=== PATIENT | female | born 1965 | race Caucasian/White ===

== ENCOUNTER 2018-03-21 04:37 | Emergency (ER) | payer MEDICAID ==
[2018-03-21 06:06] VITALS: BP 136/76
== END 2018-03-21 06:06 | disposition home or self-care (01) ==
LOC: ED 04:37
DX: M54.41 Lumbago with sciatica, right side (principal); M79.604 Pain in right leg
CPT/HCPCS: J1885; Q0092

== ENCOUNTER 2018-03-31 23:15 | Emergency (ER) | payer MEDICAID ==
[~2018-03-31] VITALS: Ht 157.5 cm; Wt 71.4 kg
[2018-03-31 23:34] VITALS: Ht 157.5 cm; Wt 71.4 kg
[2018-04-01 01:26] VITALS: BP 154/64
== END 2018-04-01 01:18 | disposition home or self-care (01) ==
LOC: ED 23:15
DX: M54.41 Lumbago with sciatica, right side (principal)
CPT/HCPCS: J1885; J3010; Q0162

== ENCOUNTER 2018-07-27 17:19 | Emergency (ER) | payer MEDICAID ==
[2018-07-27 17:34] VITALS: Ht 152.4 cm
[2018-07-27 20:26] VITALS: BP 135/64
== END 2018-07-27 20:26 | disposition home or self-care (01) ==
LOC: ED 17:19
DX: M54.5 Low back pain (principal); J06.9 Acute upper respiratory infection, unspecified
CPT/HCPCS: J1885

== ENCOUNTER 2018-12-11 23:08 | Emergency (ER) | payer MEDICAID ==
[~2018-12-11] VITALS: Ht 152.4 cm; Wt 68.0 kg
[2018-12-11 23:50] VITALS: Ht 152.4 cm; Wt 68.0 kg
[2018-12-12 00:35] LABS: BASOPHIL % 0.7 % (0-2); RED CELL DISTRIBUTION WIDTH 13.4 % (11.5-14.5)
[2018-12-12 00:42] LABS: PLATELET COUNT 480 x10^3mcL (130-400)
[2018-12-12 00:44] LABS: CALCIUM 8.2 mg/dL (8.5-10.1); CARBON DIOXIDE 27.9 mmol/L (21-32); CHLORIDE SERUM 101 mmol/L (98-107); CREATININE SERUM 0.8 mg/dL (0.6-1.0); GFR1 > 60 mL/min; GLUCOSE SERUM 99 mg/dL (74-106); POTASSIUM SERUM 3.7 mmol/L (3.5-5.1); SODIUM SERUM 136 mmol/L (136-145)
[2018-12-12 00:51] LABS: ALBUMIN 3.4 g/dL (3.4-5.0); ALKALINE PHOSPHATASE 94 U/L (46-116); ALT/SGPT 29 U/L (14-59); AST/SGOT 27 U/L (15-37); BILIRUBIN TOTAL 0.1 mg/dL (0.20-1.00)
[2018-12-12 02:33] VITALS: BP 136/80
== END 2018-12-12 02:33 | disposition home or self-care (01) ==
LOC: ED 23:08
PROVIDERS: Emergency Medicine
DX: L03.115 Cellulitis of right lower limb (principal); T81.49XD Infection following a procedure, other surgical site, subsequent encounter
CPT/HCPCS: J0690; J1885; J2405; J3010; Q0092

== ENCOUNTER 2019-02-28 10:34 | Emergency (ER) | payer MEDICAID ==
[~2019-02-28] VITALS: Ht 152.4 cm; Wt 73.0 kg
[2019-02-28 10:36] VITALS: Ht 152.4 cm; Wt 73.0 kg
[2019-02-28 13:40] LABS: BASOPHIL % 0.5 % (0-2); PLATELET COUNT 292 x10^3mcL (130-400); RED CELL DISTRIBUTION WIDTH 13.7 % (11.5-14.5)
[2019-02-28 13:52] LABS: UA SPECIFIC GRAVITY 1.025 (1.005-1.035); microscopic required? YES; urine erythrocyte TRACE (NEGATIVE)
[2019-02-28 14:08] LABS: CALCIUM 8.6 mg/dL (8.5-10.1); CHLORIDE SERUM 104 mmol/L (98-107); CREATININE SERUM 0.6 mg/dL (0.6-1.0); GFR1 > 60 mL/min; GLUCOSE SERUM 89 mg/dL (74-106); POTASSIUM SERUM 3.8 mmol/L (3.5-5.1); SODIUM SERUM 138 mmol/L (136-145)
[2019-02-28 14:13] LABS: ALBUMIN 3.4 g/dL (3.4-5.0); ALKALINE PHOSPHATASE 91 U/L (46-116); ALT/SGPT 26 U/L (14-59); AST/SGOT 21 U/L (15-37); BILIRUBIN TOTAL 0.25 mg/dL (0.20-1.00); LIPASE 113 IU/L (73-393); TOTAL PROTEIN, SERUM 7.6 g/dL (6.4-8.2)
[2019-02-28 14:46] VITALS: BP 135/58
== END 2019-02-28 14:46 | disposition home or self-care (01) ==
LOC: ED 10:34
PROVIDERS: Emergency Medicine
DX: K57.92 Diverticulitis of intestine, part unspecified, without perforation or abscess without bleeding (principal); Z98.890 Other specified postprocedural states
CPT/HCPCS: 36415